=== PATIENT | male | born 1960 | race Asian ===

== ENCOUNTER 2022-10-07 16:21 | Inpatient (IN) | payer BC ==
[~2022-10-07] VITALS: Ht 182.9 cm; Wt 80.7 kg
[2022-10-07 17:07] VITALS: BP_SYST 140
[2022-10-07] MEDS ORDERED: NACL 0.9% 1,000 ML IV ONE (17:30)
[2022-10-07] MEDS ORDERED: KETOROLAC TROMETHAMINE 30 MG VIAL IVP ONE (17:30)
[2022-10-07 18:02] LABS: BASOPHILS % (AUTO) 0.2 % (0.0-2.0); EOSINOPHILS # (AUTO) 0.3 K/uL (0.0-0.4); EOSINOPHILS % (AUTO) 2.1 % (0.0-4.0); HEMATOCRIT 53.3 % (36-54); HEMOGLOBIN 17.6 g/dL (14.0-18.0); LYMPHOCYTES # (AUTO) 0.7 K/uL (1.0-5.5); LYMPHOCYTES % (AUTO) 4.2 % (20.5-51.5); MEAN CORPUSCULAR HEMOGLOBIN 31 pg (27-31); MEAN CORPUSCULAR HGB CONC 33 % (32-36); MEAN CORPUSCULAR VOLUME 93 fL (79.0-98.0); MONOCYTES # (AUTO) 0.6 K/uL (0.0-1.0); MONOCYTES % (AUTO) 3.9 % (1.7-9.3); NEUTROPHILS # (AUTO) 14.1 K/uL (1.8-7.7); NEUTROPHILS % (AUTO) 89.6 % (40.0-70.0); PLATELET COUNT (AUTO) 138 K/uL (130-430); RED BLOOD CELL COUNT(AUTO) 5.71 MIL/uL (4.2-6.2); RED CELL DISTRIBUTION WIDTH 13.2 % (9.0-15.0); WHITE BLOOD COUNT (AUTO) 15.8 K/uL (4.8-10.8)
[2022-10-07 18:12] LABS: CREATININE 0.98 mg/dL (0.55-1.30)
[2022-10-07 18:29] LABS: ALBUMIN 4.5 g/dL (3.4-4.8); TOTAL BILIRUBIN 1.6 mg/dL (0.0-1.0)
[2022-10-07] MEDS ORDERED: PANTOPRAZOLE SODIUM 40 MG/VIAL (PROTONIX) IVP ONE (19:00)
[2022-10-07] MEDS ORDERED: KCL 20 mEq in NS 1000 mL 1,000 ML IV SCH (19:15)
[2022-10-07] MEDS ORDERED: KETOROLAC TROMETHAMINE 30 MG VIAL ONE (20:15)
[2022-10-07] MEDS: AZITHROMYCIN 250 MG TABLET PO SCH (20:27)
[2022-10-07] MEDS ORDERED: BUDE6HFA INH (21:05)
[2022-10-07] MEDS ORDERED: METF-379 PO (21:06)
[2022-10-07] MEDS ORDERED: AMLO5TAB4 PO (21:07)
[2022-10-07] MEDS ORDERED: LIP10 PO (21:07)
[2022-10-07] MEDS ORDERED: ENTE1TAB7 PO (21:08)
[2022-10-07] MEDS ORDERED: ALBMDI INH (21:09)
[2022-10-07] MEDS ORDERED: TAMS-11 PO (21:10)
[2022-10-07] MEDS ORDERED: GLIM4TAB PO (21:10)
[2022-10-07] MEDS ORDERED: EMPA25TA PO (21:10)
[2022-10-07] MEDS ORDERED: LOSA1TAB37 PO (21:11)
[2022-10-07] MEDS ORDERED: KCL 20 mEq in NS 1000 mL 1,000 ML IV ONE (21:19)
[2022-10-07 21:30] LABS: BILIRUBIN,URINE NEGATIVE (NEGATIVE); BLOOD, URINE NEGATIVE (NEGATIVE); CLARITY/URINE CLEAR (CLEAR); COLOR,URINE YELLOW (YELLOW); GLUCOSE,URINE 3+ (NEGATIVE); KETONES,URINE 3+ (NEGATIVE); LEUKOCYTE ESTERASE ,URINE NEGATIVE (NEGATIVE); NITRITE, URINE NEGATIVE (NEGATIVE); PROTEIN URINE NEGATIVE (NEGATIVE)
[2022-10-07] MEDS ORDERED: LevALBUTEROL HCL 1.25 MG/0.5 ML *CONC.* VIAL.NEB (XOPENEX CONC.) INH PRN (21:30)
[2022-10-07] MEDS ORDERED: HYDROmorphone 1 MG/ML INJ. CARTRIDGE IVP PRN (21:30)
[2022-10-07] MEDS ORDERED: NALOXONE HCL 0.4 MG/ML AMP (NARCAN) IVP PRN (21:30)
[2022-10-07] MEDS ORDERED: ONDANSETRON HCL 4 MG/2 ML VIAL IVP PRN (21:30)
[2022-10-07] MEDS ORDERED: ACETAMINOPHEN 325 MG TABLET PO PRN (21:30)
[2022-10-07 21:46] LABS: BACTERIA,URINE None Seen /HPF (None Seen); MUCUS,URINE None Seen /LPF (None Seen); RBC,URINE NONE SEEN /HPF (0-3); WBC,URINE NONE SEEN /HPF (0-3)
[2022-10-07] MEDS ORDERED: ENOXAPARIN SODIUM 40 MG/0.4 ML SYRINGE SUBCUT ONE (22:00)
[2022-10-07] MEDS ORDERED: CEFEPIME 1 GM in D5W 50 ML IV SCH (22:00)
[2022-10-07 23:26] VITALS: BP_SYST 138
[2022-10-08 00:06] VITALS: BP_SYST 141
[2022-10-08] MEDS: LevALBUTEROL HCL 1.25 MG/0.5 ML *CONC.* VIAL.NEB (XOPENEX CONC.) INH SCH ×4 (00:09→23:25)
[2022-10-08 03:15] VITALS: BP_SYST 81
[2022-10-08 07:05] LABS: ALBUMIN 3.4 g/dL (3.4-4.8); CALCIUM 8.4 mg/dL (8.4-11.0); CREATININE 0.96 mg/dL (0.55-1.30); TOTAL BILIRUBIN 1.5 mg/dL (0.0-1.0)
[2022-10-08 08:00] VITALS: BP_SYST 131
[2022-10-08 08:23] LABS: BASOPHILS % (AUTO) 0.2 % (0.0-2.0); EOSINOPHILS # (AUTO) 1.7 K/uL (0.0-0.4); EOSINOPHILS % (AUTO) 18.7 % (0.0-4.0); HEMATOCRIT 44.2 % (36-54); HEMOGLOBIN 15.2 g/dL (14.0-18.0); LYMPHOCYTES # (AUTO) 1.9 K/uL (1.0-5.5); LYMPHOCYTES % (AUTO) 20.7 % (20.5-51.5); MEAN CORPUSCULAR HEMOGLOBIN 32 pg (27-31); MEAN CORPUSCULAR HGB CONC 34 % (32-36); MEAN CORPUSCULAR VOLUME 92 fL (79.0-98.0); MONOCYTES # (AUTO) 0.5 K/uL (0.0-1.0); MONOCYTES % (AUTO) 4.9 % (1.7-9.3); NEUTROPHILS # (AUTO) 5.1 K/uL (1.8-7.7); NEUTROPHILS % (AUTO) 55.5 % (40.0-70.0); PLATELET COUNT (AUTO) 120 K/uL (130-430); RED BLOOD CELL COUNT(AUTO) 4.83 MIL/uL (4.2-6.2)
[2022-10-08 08:47] LABS: WHITE BLOOD COUNT (AUTO) 9.2 K/uL (4.8-10.8)
[2022-10-08] MEDS: CEFEPIME 1 GM in D5W 50 ML IV SCH ×2 (11:07→20:39)
[2022-10-08] MEDS: KCL 20 mEq in NS 1000 mL 1,000 ML IV SCH ×2 (11:07→18:30)
[2022-10-08] MEDS: PANTOPRAZOLE SODIUM 40 MG/VIAL (PROTONIX) IVP SCH ×2 (11:17→20:38)
[2022-10-08] MEDS: AZITHROMYCIN 250 MG TABLET PO SCH (11:17)
[2022-10-08] MEDS: INSULIN REGULAR, HUMAN 100 UNITS/ML, 3 ML VIAL (humuLIN R) SUBCUT PRN (11:31)
[2022-10-08 12:00] VITALS: BP_SYST 131
[2022-10-08] MEDS ORDERED: POTASSIUM CHLORIDE 20 MEQ TAB.PRT.SR PO ONE (13:15)
[2022-10-08 16:00] VITALS: BP_SYST 135
[2022-10-08 20:00] VITALS: BP_SYST 141
[2022-10-08] MEDS: ENOXAPARIN SODIUM 40 MG/0.4 ML SYRINGE SUBCUT SCH (20:39)
[2022-10-09] VITALS: BP_SYST 137
[2022-10-09] MEDS: KCL 20 mEq in NS 1000 mL 1,000 ML IV SCH ×3 (04:14→23:04)
[2022-10-09] MEDS: LevALBUTEROL HCL 1.25 MG/0.5 ML *CONC.* VIAL.NEB (XOPENEX CONC.) INH SCH ×3 (07:33→23:08)
[2022-10-09 08:36] VITALS: BP_SYST 134
[2022-10-09] MEDS: CEFEPIME 1 GM in D5W 50 ML IV SCH ×2 (09:00→22:53)
[2022-10-09] MEDS: AZITHROMYCIN 250 MG TABLET PO SCH (09:00)
[2022-10-09] MEDS: PANTOPRAZOLE SODIUM 40 MG/VIAL (PROTONIX) IVP SCH ×2 (09:00→22:54)
[2022-10-09 09:50] LABS: CHOLESTEROL 107 mg/dL (<200); HDL CHOLESTEROL 45 mg/dL (>45); TRIGLYCERIDES 130 mg/dL (30-150)
[2022-10-09] MEDS: INSULIN REGULAR, HUMAN 100 UNITS/ML, 3 ML VIAL (humuLIN R) SUBCUT PRN ×2 (13:00→23:09)
[2022-10-09 15:52] VITALS: BP_SYST 135
[2022-10-09 18:27] VITALS: BP_SYST 134
[2022-10-09 19:35] VITALS: BP_SYST 106
[2022-10-09] MEDS: ENOXAPARIN SODIUM 40 MG/0.4 ML SYRINGE SUBCUT SCH (22:54)
[2022-10-10 06:31] LABS: BASOPHILS % (AUTO) 0.3 % (0.0-2.0); EOSINOPHILS # (AUTO) 2.7 K/uL (0.0-0.4); EOSINOPHILS % (AUTO) 34.1 % (0.0-4.0); HEMATOCRIT 41.3 % (36-54); HEMOGLOBIN 14.1 g/dL (14.0-18.0); LYMPHOCYTES # (AUTO) 1.9 K/uL (1.0-5.5); LYMPHOCYTES % (AUTO) 24.7 % (20.5-51.5); MEAN CORPUSCULAR HEMOGLOBIN 32 pg (27-31); MEAN CORPUSCULAR HGB CONC 34 % (32-36); MEAN CORPUSCULAR VOLUME 93 fL (79.0-98.0); MONOCYTES # (AUTO) 0.6 K/uL (0.0-1.0); MONOCYTES % (AUTO) 7.2 % (1.7-9.3); NEUTROPHILS # (AUTO) 2.6 K/uL (1.8-7.7); NEUTROPHILS % (AUTO) 33.7 % (40.0-70.0); PLATELET COUNT (AUTO) 116 K/uL (130-430); RED BLOOD CELL COUNT(AUTO) 4.45 MIL/uL (4.2-6.2); RED CELL DISTRIBUTION WIDTH 12.8 % (9.0-15.0); WHITE BLOOD COUNT (AUTO) 7.8 K/uL (4.8-10.8)
[2022-10-10 07:01] LABS: CALCIUM 8.5 mg/dL (8.4-11.0); CREATININE 0.85 mg/dL (0.55-1.30)
[2022-10-10] MEDS: LevALBUTEROL HCL 1.25 MG/0.5 ML *CONC.* VIAL.NEB (XOPENEX CONC.) INH SCH (08:17)
[2022-10-10 08:38] VITALS: BP_SYST 138
[2022-10-10] MEDS: CEFEPIME 1 GM in D5W 50 ML IV SCH (10:03)
[2022-10-10] MEDS: PANTOPRAZOLE SODIUM 40 MG/VIAL (PROTONIX) IVP SCH (10:04)
[2022-10-10] MEDS: AZITHROMYCIN 250 MG TABLET PO SCH (10:04)
[2022-10-10] MEDS: KCL 20 mEq in NS 1000 mL 1,000 ML IV SCH (10:07)
[2022-10-10] MEDS: INSULIN REGULAR, HUMAN 100 UNITS/ML, 3 ML VIAL (humuLIN R) SUBCUT PRN (11:33)
[2022-10-10] MEDS ORDERED: POTASSIUM CHLORIDE 20 MEQ TAB.PRT.SR PO ONE (14:00)
[2022-10-10 14:19] VITALS: BP_SYST 124
== END 2022-10-10 14:35 | disposition home or self-care (01) | DRG 440 ==
LOC: SED 16:21 → STU 19:19 → SMU 21:54
PROVIDERS: ADMIT Family Medicine; ATTEND Family Medicine
DX: K85.00 Idiopathic acute pancreatitis without necrosis or infection (principal); K80.20 Calculus of gallbladder without cholecystitis without obstruction; Z20.822 Contact with and (suspected) exposure to COVID-19; E11.9 Type 2 diabetes mellitus without complications; F17.200 Nicotine dependence, unspecified, uncomplicated; I10 Essential (primary) hypertension; Z91.041 Radiographic dye allergy status; Z79.899 Other long term (current) drug therapy
CPT/HCPCS: 36415; 74181; 76376; 76700-TC; 80048; 80053; 80061; 81000; 82150; 83605; 83690; 83735; 85025; 87040; 94640; 94760; 96361; 96365; 96375; 99285; C9113; J0692; J1650; J1815; J1885; J3480; J7030; J7060; J7612; Q0144